=== PATIENT | female | born 1980 | race Caucasian/White ===

== ENCOUNTER → 2016-05-24 | Outpatient (REF) | payer OTHER | LOC: M SFHCWAGY 11:51 | PROVIDERS: ATTEND Nurse Practitioner Women's Health | DX: Z12.4 Encounter for screening for malignant neoplasm of cervix (principal); N88.0 Leukoplakia of cervix uteri ==

== ENCOUNTER → 2016-06-01 | Outpatient (CLI) | payer BC ==
--- NOTE | 2016-06-02 10:09 | REP ---
Clinical: Pelvic pain abnormal menstrual cycles . Technique: Transabdominal pelvic ultrasound followed by transvaginal examination for better evaluation of the endometrium and adnexa with color Doppler evaluation of the ovaries. Findings: Bladder is unremarkable and measures 7.3 x 8.8 x 4.7 cm . Normal anteverted uterus measures 7.6 x 3.7 x 4.6 cm . The endometrial complex measures 7.8 mm thickness. No discrete uterine or endometrial abnormalities are appreciated. Bilateral ovaries are normal in appearance and vascularity without evidence for torsion. Right ovary measures 3.3 x 2.0 x 2.5 cm ; R I = 0.40. Left ovary measures 3.7 x 2.5 x 2.5 cm ; R I = 0.49. No pelvic fluid or adnexal mass lesion. Impression: 1. Normal pelvic ultrasound.
== END ==
LOC: M WHC 12:51
PROVIDERS: ATTEND Nurse Practitioner Women's Health
DX: N92.6 Irregular menstruation, unspecified (principal)

== ENCOUNTER → 2016-06-21 | Outpatient (REF) | payer OTHER | LOC: M SFHCLERA 13:35 | PROVIDERS: ATTEND Nurse Practitioner Family | DX: R39.9 Unspecified symptoms and signs involving the genitourinary system (principal) ==

== ENCOUNTER → 2016-07-07 | Outpatient (REF) | payer OTHER | LOC: M SMT 17:00 | PROVIDERS: ATTEND Nurse Practitioner Women's Health | DX: R30.0 Dysuria (principal) ==

== ENCOUNTER → 2016-09-16 | Day surgery (SDC) | payer BC, OTHER ==
[~2016-09-16] VITALS: Ht 160 cm; Wt 71.2 kg
[~2016-09-16] MED LIST: KETOROLAC 30 MG/ML VIAL (J1885) IV SCH; KETOROLAC 60 MG/2 ML VIAL (J1885) As Ordered ONE; LIDOCAINE 2% INJ 100 MG/5 ML SDV (FOR ANES.) As Ordered ONE; LR 1,000 ML IV ONE; LR 1,000 ML IV SCH; METOCLOPRAMIDE INJ 10MG/2ML VIAL (J2765) IV PRN; MIDAZOLAM INJ 2 MG/2 ML VIAL (J2250) As Ordered ONE; ONDANSETRON 4MG/2ML VIAL (J2405) As Ordered ONE; ONDANSETRON 4MG/2ML VIAL (J2405) IV PRN; PERCOCET 5MG/325MG TAB PO PRN; PROPOFOL 200 MG/20 ML VIAL As Ordered ONE; dexameTHASONE 4 MG/ML 1ML VIAL (J1100) As Ordered ONE; fentaNYL 100 MCG/2 ML INJECTION (J3010) As Ordered ONE; fentaNYL 100 MCG/2 ML INJECTION (J3010) IV PRN; no meds
[2016-09-16 08:06] LABS: MEAN CORPUSCULAR HEMOGLOBIN 29.7 pg (27.0-33.0); MEAN CORPUSCULAR HGB CONC 33.3 g/dl (32.0-36.5); MEAN CORPUSCULAR VOLUME 89.3 fl (80.0-96.0); RED CELL DISTRIBUTION WIDTH 12.5 % (11.5-14.5); WHITE BLOOD COUNT 7.1 K/mm3 (4.0-10.0)
[2016-09-16 08:22] LABS: CONTROL LINE HCG INT CTR LINE PRESENT
--- NOTE | 2016-09-16 09:38 | RO ---
DATE OF PROCEDURE: 09/16/2016 PREOPERATIVE DIAGNOSIS: Abnormal uterine bleeding. POSTOPERATIVE DIAGNOSIS: Abnormal uterine bleeding. PROCEDURE: Hysteroscopy, dilation and curettage with NovaSure endometrial ablation. SURGEON: Stephy Childs MD GLOBAL SECURITY ARCHITECT: None. ANESTHESIA: General endotracheal anesthesia. INTRAVENOUS FLUIDS: 1 liter of lactated Ringer solution. URINE OUTPUT: 25 mL. ESTIMATED BLOOD LOSS: 5 mL. SPECIMENS: Endometrial curettings. OPERATIVE FINDINGS: Patient with a thickened endometrium. Bilateral ostia visualized. Uterine cavity was 4 x 3.5 cm. Post ablation hysteroscopic findings reveal desiccation of endometrium. DESCRIPTION OF OPERATION: After informed consent was obtained and written content was reviewed, the patient was brought to the operating room where general endotracheal anesthesia was obtained. She was then placed in lithotomy position and was prepped and draped in normal sterile fashion. A time out in the operating room was then performed identifying the patient, the procedure to be performed, as well as drug allergies. A bivalved speculum was then placed revealing the cervix. The anterior lip of the cervix was grasped with a single tooth tenaculum. The uterine cavity length was then obtained. The cervix was then sequentially dilated using Hanks dilators. The hysteroscope was then advanced through the cervical os. The endometrium was surveyed with the above noted findings. The hysteroscope was then removed. A sharp curette was then advanced through the cervical os to the level of the fundus and the uterus was curetted in a 360 degree fashion with tissue obtained. The tissue was then collected and sent to pathology. Next, the NovaSure device was then advanced through the cervical os. Uterine cavity width was then obtained. Both the cavity width and the length was then entered into the NovaSure device. Cavity assessment was performed and then the endometrial cavity was ablated for approximately 60 seconds. The NovaSure device was then removed. The mesh was inspected and noted to be intact. The hysteroscope was then advanced through the cervical os and the endometrium was re-surveyed showing no perforations with desiccation of endometrium. Instruments were then removed from the patient's vagina. The tenaculum sites were noted to be hemostatic. The speculum was removed. In and out catheter was then performed productive of 25 mL of clear urine. The patient was then taken out of lithotomy position and was awakened from general anesthesia and taken to recovery in stable condition. Counts were correct.
[2016-09-16 10:35] VITALS: BP 126/84
== END ==
LOC: M SDC 07:28
PROVIDERS: ATTEND Obstetrics & Gynecology
DX: N93.9 Abnormal uterine and vaginal bleeding, unspecified (principal); N85.8 Other specified noninflammatory disorders of uterus; Z88.2 Allergy status to sulfonamides; Z87.891 Personal history of nicotine dependence
CPT/HCPCS: 36415; 58563; 84703; 85027; 86850; 86900; 86901; 88305; A4649; J1100; J1885; J2250; J2405; J3010

== ENCOUNTER → 2016-11-08 | Outpatient (REF) | payer OTHER ==
[~2016-11-08] MED LIST changes: -KETOROLAC 30 MG/ML VIAL (J1885) IV SCH; -KETOROLAC 60 MG/2 ML VIAL (J1885) As Ordered ONE; -LIDOCAINE 2% INJ 100 MG/5 ML SDV (FOR ANES.) As Ordered ONE; -LR 1,000 ML IV ONE; -LR 1,000 ML IV SCH; -METOCLOPRAMIDE INJ 10MG/2ML VIAL (J2765) IV PRN; -MIDAZOLAM INJ 2 MG/2 ML VIAL (J2250) As Ordered ONE; -ONDANSETRON 4MG/2ML VIAL (J2405) As Ordered ONE; -ONDANSETRON 4MG/2ML VIAL (J2405) IV PRN; -PERCOCET 5MG/325MG TAB PO PRN; -PROPOFOL 200 MG/20 ML VIAL As Ordered ONE; -dexameTHASONE 4 MG/ML 1ML VIAL (J1100) As Ordered ONE; -fentaNYL 100 MCG/2 ML INJECTION (J3010) As Ordered ONE; -fentaNYL 100 MCG/2 ML INJECTION (J3010) IV PRN
[2016-11-08 13:48] LABS: BACTERIA, URINE SMALL AMOUNT; MICROSCOPIC EXAM PERFORMED; RBC, URINE 0-1 /hpf (0-3); SQUAMOUS EPITHELIAL CELL URINE SMALL AMOUNT /hpf (SMALL AMT); WBC, URINE NONE SEEN /hpf (0-3)
== END ==
LOC: M SMT 13:04
PROVIDERS: ATTEND Specialist
DX: N30.90 Cystitis, unspecified without hematuria (principal)

== ENCOUNTER → 2017-01-03 | Outpatient (REF) | payer OTHER | LOC: M SFHCLERA 10:14 | PROVIDERS: ATTEND Family Medicine | DX: Z13.220 Encounter for screening for lipoid disorders (principal) ==

== ENCOUNTER → 2017-04-19 | Outpatient (CLI) | payer OTHER | LOC: M RAD 09:51 | DX: N63.10 Unspecified lump in the right breast, unspecified quadrant (principal); R92.8 Other abnormal and inconclusive findings on diagnostic imaging of breast | CPT/HCPCS: 77066 ==

== ENCOUNTER → 2017-05-04 | Outpatient (CLI) | payer OTHER ==
[~2017-05-04] MED LIST changes: +LIDOCAINE 1% MDV 20ML VIAL As Ordered; -no meds
== END ==
LOC: M RADPRO 12:51
DX: N63.10 Unspecified lump in the right breast, unspecified quadrant (principal); D24.1 Benign neoplasm of right breast; Z88.2 Allergy status to sulfonamides
CPT/HCPCS: 19083

== ENCOUNTER → 2017-07-11 | Outpatient (REF) | payer OTHER | LOC: M SFHCLUC 16:30 | DX: J02.9 Acute pharyngitis, unspecified (principal) ==

== ENCOUNTER → 2017-10-24 | Outpatient (REF) | payer OTHER | LOC: M SFHCWAGY 13:49 | DX: Z12.4 Encounter for screening for malignant neoplasm of cervix (principal) | CPT/HCPCS: G0123 ==

== ENCOUNTER → 2018-06-06 | Outpatient (CLI) | payer OTHER ==
[~2018-06-06] MED LIST changes: -LIDOCAINE 1% MDV 20ML VIAL As Ordered; +XANA0.5T PO; +no meds
--- NOTE | 2018-06-06 12:21 | REP ---
RIGHT BREAST ULTRASOUND: 06/06/2018. Comparison: Ultrasound guided biopsy right breast 05/04/2017, breast ultrasound 04/19/2017. Clinical history: Right breast axillary region for tenderness in the axillary tail. Known fibroadenoma right breast. Findings: Right breast at region of the axillary tail where she has pain again shows a fibroadenoma currently 9.8 x 8.5 x 8.9 mm. This is decreased in size from the previous study where measured 23 x 9 mm on the previous exam. There is biopsy-proven as fibroadenoma. In the axillary tail, there is heterogeneous echogenic dense breast tissue in the region of the palpable finding, not a mass. No dilated duct, cyst, architectural distortion or other mass. Impression: 1. BIRADS ACR category 2 benign, benign findings. Biopsy-proven fibroadenoma in the upper outer quadrant, smaller than last years exam before the biopsy. There is also a zone of heterogeneous echogenic dense breast tissue in the axillary tail in the region of palpable finding. No mass, cyst or dilated duct. 2. Recommend followup based on clinical grounds only. This negative report should not deter further evaluation of a dominant or suspicious physical finding. Mammography should be performed at age 40 or sooner if clinically indicated. Electronically Signed by Teodoro Balbuena MD 06/06/2018 09:18 P
== END ==
LOC: M RAD 09:31
PROVIDERS: ATTEND Surgery
DX: D24.1 Benign neoplasm of right breast (principal); N64.4 Mastodynia

== ENCOUNTER 2018-06-19 08:51 | Day surgery (SDC) | payer OTHER ==
[~2018-06-19] VITALS: Ht 160 cm; Wt 66.7 kg
[~2018-06-19 08:51] MED LIST changes: +LIDOCAINE 1% MDV 20ML VIAL SQ PRN; +LR 1,000 ML IV ONE
[2018-06-19 10:07] LABS: URINE PREG TEST NEGATIVE (NEGATIVE)
[2018-06-19] MEDS ORDERED: fentaNYL 100 MCG/2 ML INJECTION (J3010) As Ordered ONE (10:47)
[2018-06-19] MEDS ORDERED: PROPOFOL 200 MG/20 ML VIAL As Ordered ONE (10:47)
[2018-06-19] MEDS ORDERED: ONDANSETRON 4MG/2ML VIAL (J2405) As Ordered ONE (10:47)
[2018-06-19] MEDS ORDERED: KETOROLAC 60 MG/2 ML VIAL (J1885) As Ordered ONE (10:47)
[2018-06-19] MEDS ORDERED: LIDOCAINE 2% INJ 100 MG/5 ML SDV (FOR ANES.) As Ordered ONE (10:47)
[2018-06-19] MEDS ORDERED: MIDAZOLAM INJ 2 MG/2 ML VIAL (J2250) As Ordered ONE ×3 (10:47→12:51)
[2018-06-19] MEDS ORDERED: CHLOROPROCAINE PRES. FREE 3% INJ 20 ML VIAL (J2400) As Ordered ONE (11:43)
[2018-06-19] MEDS ORDERED: BUPIVACAINE HCL 0.5% 30 ML VIAL As Ordered ONE (11:49)
[2018-06-19] MEDS ORDERED: BUPIVACAINE LIPOSOME/PF 1.3% 20ML VIAL (13.3MG/ML)(EXPAREL)(C9290 PER1MG) As Ordered ONE (11:50)
[2018-06-19] MEDS ORDERED: PHENYLephrine HCL 500 MCG/5 ML (100MCG/ML) SYRINGE (J2370) As Ordered ONE (12:46)
[2018-06-19] MEDS ORDERED: LR 1,000 ML IV SCH (13:45)
[2018-06-19] MEDS ORDERED: ACETAMINOPHEN TAB 650MG DOSE (2X325MG) PO PRN (13:45)
[2018-06-19] MEDS ORDERED: PERCOCET 5MG/325MG TAB PO PRN (13:45)
[2018-06-19] MEDS ORDERED: NORCO, ANEXSIA 5/325MG TABLET (HYDROcodone/ACETAMINOPHEN) PO PRN (13:45)
[2018-06-19] MEDS ORDERED: ONDANSETRON 4MG/2ML VIAL (J2405) IV PRN (13:45)
[2018-06-19] MEDS ORDERED: fentaNYL 100 MCG/2 ML INJECTION (J3010) IV PRN (13:45)
[2018-06-19] MEDS ORDERED: HYDROMORPHONE HCL 0.5 MG/ 0.5 ML SYRINGE (J1170 PER 1) IV PRN (13:45)
[2018-06-19 15:05] VITALS: BP 112/71
[2018-06-19] MEDS ORDERED: IBUPROFEN 800 MG TAB PO PRN (19:00)
--- NOTE | 2018-06-21 07:11 | RO ---
DATE OF PROCEDURE: 06/19/2018 PREOPERATIVE DIAGNOSIS: Chronic posterior anal fissure. POSTOPERATIVE DIAGNOSIS: Chronic posterior anal fissure. PROCEDURE PERFORMED: Left lateral internal sphincterotomy. SURGEON: Dr. Jung Hannah PMO BUSINESS ANALYST: ANESTHESIA: Spinal. INDICATIONS FOR THE PROCEDURE: The patient is a 38-year-old woman who has had several months of anal pain associated with bowel movements with intermittent bleeding. Examination confirmed a posterior midline fissure. She is now for a lateral internal sphincterotomy. OPERATIVE PROCEDURE: The patient was brought to the operating room. She had a subarachnoid block anesthetic placed and was then rolled into a prone position and moved into a prone jackknife position. The buttocks were spread with tape and the perineum was prepped and draped in a sterile fashion. Inspection using a Shabazz anal speculum revealed a short posterior midline chronic fissure. This was about 5 mm in length at the external end of the internal sphincter. The fissure was small, but the muscle fibers were readily apparent. There was no sign of infection. Using the speculum, a site for the sphincterotomy was identified in a left lateral position. The distal edge of the internal sphincter muscle was identified. An approximately 1.5 cm longitudinal incision was made in the anoderm beginning distally and working towards the anus. Hemostasis was ensured with the cautery. The distal edge of the internal sphincter muscle was identified and this was then elevated with a hemostat. Using the cautery, the muscle was divided for approximately 1.2 cm. Inspection showed that there was significant separation of the ends of the muscle. Hemostasis was ensured. 0.25% Marcaine was infiltrated around the sphincterotomy site and also at the chronic fissure. The anoderm was approximated with three simple sutures of #3-0 chromic. A light dressing of Adaptic and fluffed gauze was applied. The patient was then rolled into a supine position. She was transported to the recovery room in stable condition.
== END 2018-06-19 15:15 | disposition home or self-care (01) ==
LOC: M SDC 08:51
PROVIDERS: ATTEND Surgery
DX: K60.1 Chronic anal fissure (principal); F41.9 Anxiety disorder, unspecified; F17.210 Nicotine dependence, cigarettes, uncomplicated; Z79.899 Other long term (current) drug therapy; Z88.2 Allergy status to sulfonamides
CPT/HCPCS: 46080; 84703; J1885; J2250; J2370; J2400; J2405; J3010

== ENCOUNTER 2018-06-21 14:33 | Outpatient (CLI) | payer OTHER ==
[~2018-06-21 14:33] MED LIST changes: -LIDOCAINE 1% MDV 20ML VIAL SQ PRN; -LR 1,000 ML IV ONE
[2018-06-21 16:33] VITALS: BP 135/70
== END 2018-06-21 16:33 | disposition home or self-care (01) ==
LOC: M RROUT 14:33
PROVIDERS: ATTEND Anesthesiology
DX: G97.1 Other reaction to spinal and lumbar puncture (principal); Z98.890 Other specified postprocedural states; Z87.19 Personal history of other diseases of the digestive system; Z88.2 Allergy status to sulfonamides

== ENCOUNTER → 2019-01-29 | Outpatient (REF) | payer OTHER | LOC: M SFHCLERA 10:11 | PROVIDERS: ATTEND Physician Assistant | DX: R31.9 Hematuria, unspecified (principal) ==

== ENCOUNTER → 2019-02-21 | Outpatient (CLI) | payer OTHER ==
--- NOTE | 2019-02-21 21:38 | REPVR ---
PROCEDURE INFORMATION: Exam: MR Lumbar Spine Without Contrast. Exam date and time: 02/21/2019 8:25 PM Clinical history: 38 years old, female; Low back pain; Additional info: Lbp, disc herniation, loss of urinary fucntion TECHNIQUE: Imaging protocol: Multiplanar magnetic resonance images of the lumbar spine without contrast. COMPARISON: No relevant prior studies available. FINDINGS: Mild retrolisthesis of L4 on L5 and L5 on S1. There is disc desiccation at L4-L5 and L5-S1. [id number] disc space narrowing at L5-S1. There is degenerative endplate signal without evidence of discitis/osteomyelitis. Conus medullaris terminates at T12-L1. No epidural fluid collection. L1-L2: Mild bilateral facet joint arthropathy without untoward foraminal stenosis. L2-L3: Mild to moderate right and mild left facet joint arthropathy without central or foraminal stenosis. L3-L4: [id number] bilateral facet joint arthropathy without central or foraminal stenosis. L4-L5: Mild to moderate disc bulge with mild bilateral facet joint arthropathy and posterior laxity of ligamentum flavum. There is mild central canal stenosis and mild to moderate right foraminal stenosis. L5-S1: Mild to moderate moderate disc osteophyte complex eccentric toward the right side and mild bilateral facet joint arthropathy. No significant central canal stenosis. There is moderate right and mild left foraminal stenosis. IMPRESSION: 1. No acute abnormality. 2. Mild central canal stenosis at L4-L5 with mild to moderate right foraminal stenosis. 3. Moderate right and mild left foraminal stenosis at L5-S1. Electronically signed by: Gilles Medina On 02/21/2019 21:38:28 PM
== END ==
LOC: M RAD 18:21
PROVIDERS: ATTEND Physician Assistant
DX: M54.5 Low back pain (principal); M47.27 Other spondylosis with radiculopathy, lumbosacral region; M51.36 Other intervertebral disc degeneration, lumbar region

== ENCOUNTER → 2019-02-25 | Outpatient (REF) | payer OTHER ==
[2019-02-25 12:24] LABS: APPEARANCE, URINE HAZY (CLEAR); BACTERIA, URINE AUTO 1+ (NEGATIVE); BILIRUBIN, URINE AUTO NEGATIVE (NEGATIVE); BLOOD, URINE BLOOD 1+ (NEGATIVE); COLOR, URINE AMBER (YELLOW); GLUCOSE, URINE (UA) AUTO NEGATIVE (NEGATIVE); KETONE, URINE AUTO TRACE mg/dL (NEGATIVE); LEUKOCYTE ESTERASE, URINE AUTO TRACE (NEGATIVE); MUCUS, URINE SMALL (NEGATIVE); NITRITE, URINE AUTO NEGATIVE (NEGATIVE); PROTEIN, URINE AUTO NEGATIVE (NEGATIVE); RBC, URINE AUTO 12 /HPF (0-3); SPECIFIC GRAVITY URINE AUTO 1.035 (1.002-1.035); SQUAMOUS EPITHELIAL CELL UR AU 2 /HPF (0-6); UROBILINOGEN, URINE AUTO 0.2 mg/dL (0.0-2.0); WBC, URINE AUTO 1 /HPF (0-3)
== END ==
LOC: M LABDRAW1 09:48
PROVIDERS: ATTEND Orthopaedic Surgery
DX: M25.552 Pain in left hip (principal)

== ENCOUNTER → 2019-04-08 | Outpatient (REF) | payer OTHER ==
[2019-04-08 18:23] LABS: APPEARANCE, URINE CLEAR (CLEAR); BACTERIA, URINE AUTO NEGATIVE (NEGATIVE); BILIRUBIN, URINE AUTO NEGATIVE (NEGATIVE); BLOOD, URINE BLOOD 2+ (NEGATIVE); COLOR, URINE YELLOW (YELLOW); GLUCOSE, URINE (UA) AUTO NEGATIVE (NEGATIVE); KETONE, URINE AUTO NEGATIVE (NEGATIVE); LEUKOCYTE ESTERASE, URINE AUTO NEGATIVE (NEGATIVE); NITRITE, URINE AUTO NEGATIVE (NEGATIVE); PROTEIN, URINE AUTO NEGATIVE (NEGATIVE); RBC, URINE AUTO 8 /HPF (0-3); SPECIFIC GRAVITY URINE AUTO 1.016 (1.002-1.035); SQUAMOUS EPITHELIAL CELL UR AU 0 /HPF (0-6); UROBILINOGEN, URINE AUTO 0.2 mg/dL (0.0-2.0); WBC, URINE AUTO 1 /HPF (0-3)
== END ==
LOC: M SMT 17:35
PROVIDERS: ATTEND Nurse Practitioner Women's Health
DX: R31.29 Other microscopic hematuria (principal)

== ENCOUNTER → 2019-04-22 | Outpatient (CLI) | payer OTHER ==
[~2019-04-22] MED LIST changes: +ISOVUE-370 76% 100ML VIAL (Q9967) As Ordered ONE
--- NOTE | 2019-04-22 10:17 | REP ---
CT urography: CT abdomen and pelvis without and with IV contrast with multiphase postcontrast imaging. History: Microscopic hematuria. No comparison CT study. CT contrast dose: 100 mL of intravenous Isovue [address] findings: Preliminary digital talcer radiograph is unremarkable. Normal bowel gas pattern. Axial CT images demonstrate that the lung bases are clear on lung window settings. There is no evidence of pleural effusion or upper abdominal ascites. The liver and the spleen are normal in size, homogeneous in texture on pre and postcontrast imaging. No abnormality is noted in the gallbladder or pancreas. No adrenal lesion is seen. No retroperitoneal mass or adenopathy is observed. There is no evidence of intrarenal stone on precontrast study. Postcontrast images show symmetric normal renal contrast enhancement. No renal mass lesion is seen. Delayed scan images show no filling defect in the collecting system. Ureters describe a normal course to the urinary bladder. No bladder mass lesion is observed. No bladder calculus is seen. No uterine or ovarian abnormality is observed. A normal appendix is visible in the right lower quadrant. Small and large intestinal bowel loops are unremarkable. Impression: Negative CT urography. No evidence renal stone disease, hydronephrosis, or mass. Electronically Signed by Ton Dubose MD 04/22/2019 11:06 A
== END ==
LOC: M RAD 07:38
PROVIDERS: ATTEND Nurse Practitioner Women's Health
DX: R31.29 Other microscopic hematuria (principal)
CPT/HCPCS: 74178; Q9967

== ENCOUNTER → 2020-08-27 | Outpatient (REF) | payer OTHER ==
[~2020-08-27] MED LIST changes: -ISOVUE-370 76% 100ML VIAL (Q9967) As Ordered ONE
== END ==
LOC: M SFHCWAGY 10:10
PROVIDERS: ATTEND Nurse Practitioner Women's Health
DX: Z12.4 Encounter for screening for malignant neoplasm of cervix (principal); R87.610 Atypical squamous cells of undetermined significance on cytologic smear of cervix (ASC-US)
CPT/HCPCS: 87624; G0123

== ENCOUNTER → 2020-08-27 | Outpatient (CLI) | payer OTHER ==
--- NOTE | 2020-08-28 09:50 | REPMRS ---
Patient History The patient states she had a clinical breast exam in August 2020. Family history of prostate cancer in paternal grandfather. Benign US guided breast biopsy of the right breast, May 04, 2017. No breast complaints today Patient signed the MRS sheet 1st covid vaccine 08/04/20-right arm-Moderna Patient states she has had a 15lb intentional weight loss in the last year Priors on PACS Patient Identification Verified Patient denied Digital Woman Screen Mammo: August 27, 2020 - Exam #: [id number] Bilateral CC and MLO view(s) were taken. Technologist: Macie Granado, Technologist Prior study comparison: May 04, 2017, right breast digital mammo diagnostic unilateral, performed at [facility]. April 19, 2017, digital mammo diagnostic bilateral, performed at [facility]. FINDINGS: There are scattered fibroglandular densities. Screening. Digital screening (2D) mammography was performed bilaterally in the CC and MLO projections. Additionally, breast tomosynthesis (3D mammography) was performed bilaterally in the CC and MLO projections. Todays exam was compared to the prior exams. By history, the patient has no complaints of a palpable breast abnormality or other significant breast complaints. The breasts are unchanged in size and shape. There are no mary-soft tissue densities or spiculated masses. There is no internal architectural distortion. There are no suspicious mary-calcific clusters. Skin thickening or nipple retraction is not present. IMPRESSION: BI-RADS Category 2- Benign Findings. There is no evidence of malignant alteration of the breasts. Followup examination recommended in one year. The Volpara volumetric breast density category is B, there are scattered areas of fibroglandular density. This mammogram was read with the assistance of [employer]an FDA approved computer aided detection system for mammography. The lifetime Tyrer-Cuzick score is 12.2 % Negative x-ray reports should not delay surgical consultation if a dominant or clinically suspicious mass is present. Not all breast cancers can be identified by mammography. Therefore, we recommend that you continue to perform regular breast self-examination and physical examination and then promptly contact your physician of any concerns or changes. Adenosis and dense breasts may obscure an underlying neoplasm. Assessment: BI-RADS/ACR category 2 mammogram. Benign Findings. Recommendation Routine screening mammogram of both breasts in 1 year. Electronically Signed By: Christiano Crowe DO 08/28/20 [id number]
== END ==
LOC: M WHC 16:01
PROVIDERS: ATTEND Nurse Practitioner Women's Health
DX: Z12.31 Encounter for screening mammogram for malignant neoplasm of breast (principal); Z80.42 Family history of malignant neoplasm of prostate; R63.4 Abnormal weight loss

== ENCOUNTER → 2021-08-30 | Outpatient (CLI) | payer OTHER ==
[2021-08-30 10:03] LABS: BASO # 0.1 10^3/uL (0.0-0.2); EOS # 0.2 10^3/uL (0.0-0.5); EOS % 2.4 % (0.0-3.0); HEMATOCRIT 39.1 % (36.0-47.0); HEMOGLOBIN 12.8 g/dl (12.0-15.5); LYMPH # 2.8 10^3/uL (1.5-5.0); LYMPH % 39.3 % (24.0-44.0); MEAN CORPUSCULAR HEMOGLOBIN 29.3 pg (27.0-33.0); MEAN CORPUSCULAR HGB CONC 32.7 g/dl (32.0-36.5); MEAN CORPUSCULAR VOLUME 89.5 fl (80.0-96.0); MONO # 0.5 10^3/uL (0.0-0.8); MONO % 7.5 % (2.0-8.0); NEUTROPHILS # 3.5 10^3/uL (1.5-8.5); NEUTROPHILS % 49.5 % (36.0-66.0); PLATELET COUNT, AUTOMATED 376 10^3/uL (150-450); RED BLOOD COUNT 4.37 10^6/uL (4.00-5.40); WHITE BLOOD COUNT 7.1 10^3/uL (4.0-10.0)
[2021-08-30 10:41] LABS: ALBUMIN 3.9 GM/DL (3.2-5.2); ALT/SGPT 14 U/L (12-78); BILIRUBIN,TOTAL 0.3 MG/DL (0.2-1.0); BLOOD UREA NITROGEN 11 MG/DL (7-18); CALCIUM LEVEL 8.7 MG/DL (8.5-10.1); CARBON DIOXIDE LEVEL 30 MEQ/L (21-32); CHLORIDE LEVEL 107 MEQ/L (98-107); CHOLESTEROL LEVEL 201 MG/DL (<200); CHOLESTEROL RISK RATIO 3.589 (<5); CREATININE FOR GFR 0.67 MG/DL (0.55-1.30); GLOMERULAR FILTRATION RATE > 60.0 (>58); GLUCOSE, FASTING 86 MG/DL (70-100); HDL CHOLESTEROL 56 MG/DL (>40); LDL CHOLESTEROL 123 MG/DL (<100); NON-HDL-C 145 MG/DL; POTASSIUM SERUM 4.8 MEQ/L (3.5-5.1); SODIUM LEVEL 139 MEQ/L (136-145); TRIGLYCERIDES LEVEL 108 MG/DL (<150)
== END ==
LOC: M WUC 08:09
PROVIDERS: ATTEND Nurse Practitioner Family
DX: Z00.00 Encounter for general adult medical examination without abnormal findings (principal)

== ENCOUNTER → 2021-10-25 | Outpatient (CLI) | payer OTHER, SELFPAY | LOC: M WHC 07:37 | PROVIDERS: ATTEND Nurse Practitioner Family | DX: Z12.31 Encounter for screening mammogram for malignant neoplasm of breast (principal) ==

== ENCOUNTER → 2022-03-24 | Outpatient (REF) | payer OTHER | LOC: M SFHCPLAZ 13:17 | PROVIDERS: ATTEND Physician Assistant | DX: R68.89 Other general symptoms and signs (principal) ==

== ENCOUNTER → 2022-06-15 | Outpatient (REF) | payer OTHER | LOC: M SFHCWAGY 15:32 | PROVIDERS: ATTEND Nurse Practitioner Family | DX: Z12.4 Encounter for screening for malignant neoplasm of cervix (principal); Z77.9 Other contact with and (suspected) exposures hazardous to health | CPT/HCPCS: 87624; G0123 ==

== ENCOUNTER → 2022-11-14 | Outpatient (CLI) | payer OTHER | LOC: M WHC 09:03 | PROVIDERS: ATTEND Nurse Practitioner Family | DX: Z12.31 Encounter for screening mammogram for malignant neoplasm of breast (principal) ==

== ENCOUNTER → 2024-06-17 | Outpatient (CLI) | payer OTHER | LOC: M WHC 13:34 | DX: Z12.31 Encounter for screening mammogram for malignant neoplasm of breast (principal); R92.333 Mammographic heterogeneous density, bilateral breasts ==

== ENCOUNTER → 2024-06-17 | Outpatient (CLI) | payer OTHER ==
[2024-06-17 15:08] LABS: ALBUMIN 3.8 G/DL (3.2-5.2); ALKALINE PHOSPHATASE 53 U/L (35-104); ALT/SGPT 12 U/L (7.0-40); AST/SGOT 11 U/L (<34); BILIRUBIN,TOTAL 0.2 MG/DL (0.3-1.2); BLOOD UREA NITROGEN 11 MG/DL (9-23); CARBON DIOXIDE LEVEL 28 MMOL/L (20-31); CHLORIDE LEVEL 104 MMOL/L (98-107); CHOLESTEROL LEVEL 236 MG/DL (<200); CHOLESTEROL RISK RATIO 4.64 (<5); CREATININE FOR GFR 0.66 MG/DL (0.55-1.30); GLOMERULAR FILTRATION RATE > 60.0 (>58); GLUCOSE, FASTING 89 MG/DL (60-100); HDL CHOLESTEROL 50.8 MG/DL (>40); LDL CHOLESTEROL 161.2 MG/DL (<100); NON-HDL-C 185.2 MG/DL; POTASSIUM SERUM 4.5 MMOL/L (3.5-5.1); SODIUM LEVEL 138 MMOL/L (136-145); TOTAL PROTEIN 7.1 G/DL (5.7-8.2); TRIGLYCERIDES LEVEL 120 MG/DL (<150)
[2024-06-17 15:09] LABS: THYROID STIMULATING HORMONE 0.531 uIU/ML (0.55-4.78)
[2024-06-17 15:10] LABS: TOTAL 25(OH) VITAMIN D 23.5 NG/ML (20.0-100.0)
[2024-06-17 15:26] LABS: HEMATOCRIT 40.4 % (36.0-47.0); HEMOGLOBIN 12.9 g/dl (12.0-15.5); MEAN CORPUSCULAR HGB CONC 31.9 g/dl (32.0-36.5); MEAN CORPUSCULAR VOLUME 90.8 fl (80.0-96.0); PLATELET COUNT, AUTOMATED 416 10^3/uL (150-450); RED BLOOD COUNT 4.45 10^6/uL (4.00-5.40); WHITE BLOOD COUNT 9.5 10^3/uL (4.0-10.0)
[2024-06-17 15:50] LABS: HEMOGLOBIN A1c 5.1 % (4.0-6.0)
== END ==
LOC: M PLALAB 13:14
DX: F41.1 Generalized anxiety disorder (principal); R79.89 Other specified abnormal findings of blood chemistry